=== PATIENT | male | born 1970 | race Caucasian/White ===

== ENCOUNTER 2020-12-04 00:49 | Day surgery (SDC) | payer BC, SELFPAY ==
[2020-11-21 13:59] VITALS: BMI 35.2
--- NOTE | 2020-12-03 12:13 | WPDANESEPPF ---
Anes - Initial Pre Proc Eval Procedure: Operation Date: 12/04/20 08:00 Proposed Procedures p Screening Colonoscopy - Herminio Villagran MD Date/Time: 12/03/20 12:13 Surgeon: Herminio Villagran MD Pre Op Diagnosis: neoplasm screening Z12.11 Patient Data Age: 50 Gender: M Height: 1.83 m Weight: 118 kg Allergies Allergy/AdvReac Type Severity Reaction Status Date / Time No Known Allergies Allergy Verified 12/04/20 06:51 Home Medications Medication Instructions Recorded Confirmed Type No Home Medications 11/21/20 11/21/20 History Patient hx anesthesia problems: none Family hx anesthesia problems: none PMFSH Family History Family History (Updated 11/16/13 @ 07:13 by DOCTOR UNKNOWN) Father Family history of congestive heart failure, Onset Age: 55 Social History Social History Smoking packs per day: 0.75 Smoking cigarettes per day: 15.0 Years smoked: 12 Smoking pack-years: 9.00 Smoking status: Current every day smoker Tobacco type: cigarettes Smoking end date: 03/22/12 Additional smoking assessment comments: OCC. CIGAR Alcohol intake: current Drinks per week: 6 Substance use: never Substance use type: does not use Living arrangements: with family Spiritual care concerns: No Anes - Eval Final PreProcedure Day of Procedure 12/03/20 12:13 Patient weight: obese Heart: regular rate and rhythm Lungs: clear to auscultation and normal air movement Airway: Mallampati scale class II Neurological: alert and oriented Last oral intake: >/= 8 hours ASA classification: II Emergent: no Anesthetic plan: proceed Anesthesia type and monitoring: general GIVS and standard monitoring Informed Consent: The patient's anesthetic plan and its attendant risks and benefits were discussed with the patient/family/POA. Questions were solicited and answers provided to the satisfaction of the patient/family/POA.
[2020-12-04 06:52] VITALS: BP 113/77; PULSE 65; RESP 16; TEMP 36; O2SAT 96; BMI 34.1
[2020-12-04] MEDS: LACTATED RINGERS 1,000 ML 150 ML IV CONT (07:04)
--- NOTE | 2020-12-04 07:51 | PM.HPGS ---
History of Present Illness History of Present Illness Consent: Risks, benefits, and alternatives have been discussed and questions answered. Patient agrees to proceed with procedure. Chief complaint: neoplasm screening Z12.11 Narrative: Jaquan Avila is a 50 year old male here for first screening colonoscopy Review of Systems Constitutional: Constitutional: Denies headache(s) and Denies weakness Eyes: Eyes: Denies blurry vision ENT: Reports Normal hearing present, Denies headache(s) and Denies neck pain Cardiovascular: Cardiovascular: Denies chest pain and Denies dyspnea Respiratory: Respiratory: Denies dyspnea Gastrointestinal: Gastrointestinal: Reports no additional gastrointestinal complaints Genitourinary: Genitourinary: Denies dysuria Musculoskeletal: Musculoskeletal: Denies neck pain Integumentary/Breasts: Skin/Breast: Denies dry skin Neurologic: Reports Normal hearing present, Denies headache(s) and Denies weakness Psychiatric: Psychiatric: Denies anxiety Endocrine: Endocrine: Denies change in body appearance Hematologic/Lymphatic: Hematologic/Lymphatic: Denies easy bleeding Allergic/Immunologic: Allergic/Immunologic: Denies urticaria PMFSH Past Medical History Medical History (Updated 12/04/20 @ 07:51 by Herminio Villagran MD) Colon cancer screening Family History Family History (Updated 11/16/13 @ 07:13 by DOCTOR UNKNOWN) Father Family history of congestive heart failure, Onset Age: 55 Social History Social History Smoking packs per day: 0.75 Smoking cigarettes per day: 15.0 Years smoked: 12 Smoking pack-years: 9.00 Smoking status: Current every day smoker Tobacco type: cigarettes Smoking end date: 03/22/12 Additional smoking assessment comments: OCC. CIGAR Alcohol intake: current Drinks per week: 6 Substance use: never Substance use type: does not use Living arrangements: with family Spiritual care concerns: No Meds Home Medications and Allergies Home Medications Medication Instructions Recorded Confirmed Type No Home Medications 11/21/20 11/21/20 History Allergies Allergy/AdvReac Type Severity Reaction Status Date / Time No Known Allergies Allergy Verified 12/04/20 06:51 Vital Signs Vital Signs - 24 hr 12/04/20 06:52 Temperature 96.8 F L Pulse Rate 65 Respiratory Rate 16 Blood Pressure 113/77 Pulse Oximetry 96 Exam Const: General: comfortable and no acute distress HENMT: General nose exam: Normal nares present Eyes: General: appearance normal, both eyes and all related structures Neck: Neck: no JVD Resp: Auscultation: clear to auscultation bilaterally Cardio: Rate: regular rate Rhythm: regular rhythm GI: Inspection: non-distended GI Palp: Yes Soft to palpation Skin: General skin exam: normal color Neuro: General: gait normal Speech: normal speech Extrem: General: normal to inspection Psych: Mental Status: mental status grossly normal Assessment and Plan Assessment and plan (1) Colon cancer screening: Code(s): Z12.11 - Encounter for screening for malignant neoplasm of colon Status: Acute Assessment and Plan: colonoscopy
[2020-12-04 08:13] VITALS: BP 113/73; PULSE 65; RESP 22; O2SAT 100
[2020-12-04 08:23] VITALS: BP 120/82; PULSE 61; RESP 20; O2SAT 100
[2020-12-04 08:33] VITALS: BP 120/84; PULSE 56; RESP 21; O2SAT 99
== END 2020-12-04 08:36 | disposition home or self-care (01) ==
PROVIDERS: PCP Emergency Medicine; Visit Provider Internal Medicine Gastroenterology
PROC: 0DJD8ZZ Inspection of Lower Intestinal Tract, Via Natural or Artificial Opening Endoscopic (ICD-10-PCS; CPT 45378; principal; 2020-12-04 08:00)
DX: Z12.11 Encounter for screening for malignant neoplasm of colon (principal); D12.2 Benign neoplasm of ascending colon; D12.5 Benign neoplasm of sigmoid colon; K63.5 Polyp of colon; K57.30 Diverticulosis of large intestine without perforation or abscess without bleeding; Z72.0 Tobacco use; E66.9 Obesity, unspecified; Z68.34 Body mass index [BMI] 34.0-34.9, adult
CPT/HCPCS: 45385; 88305; J2704; J7120

== ENCOUNTER 2024-07-17 02:11 | Day surgery (SDC) | payer BC, SELFPAY ==
[2024-07-04 14:34] VITALS: BMI 34.3
--- OUTSIDE RECORDS SUMMARY | 2024-07-17 02:15 | XMS_ITS | CONTINUITY OF CARE DOCUMENT ---
Author Name alcides kellylili Address Unknown Organization [facility] Address [address] [place] [address] Phone [phone] Care Team Providers Care Tax Manager Name Role Phone Roland COMER, Ruchi Unavailable SRINATH WELSH MD Unavailable SRINATH WELSH MD Unavailable INSURANCE PROVIDERS Payer name Policy type / Coverage type [place] [employer] ID [facility] [id number]
[2024-07-17 06:38] VITALS: BP 120/71; PULSE 68; RESP 16; TEMP 35.9; O2SAT 97; BMI 32.7
[2024-07-17] MEDS: LACTATED RINGERS 1,000 ML 150 ML IV CONT ×2 (06:46→07:59)
--- NOTE | 2024-07-17 07:04 | WPDANESEPPF ---
Anes - Initial Pre Proc Eval Procedure: Operation Date: 07/17/24 08:00 Proposed Procedures p Colonoscopy - Herminio Villagran MD Date/Time: 07/17/24 07:04 Surgeon: Herminio Villagran MD Pre Op Diagnosis: Personal hx of colon polyps Patient Data Age: 54 Gender: M Height: 1.85 m Weight: 112.5 kg Last Vital Signs Temp 96.7 F L 07/17/24 06:38 Pulse 68 07/17/24 06:38 Resp 16 07/17/24 06:38 BP 120/71 07/17/24 06:38 Pulse Ox 97 07/17/24 06:38 O2 Del Method Room Air 07/17/24 06:38 Allergies Allergy/AdvReac Type Severity Reaction Status Date / Time No Known Allergies Allergy Verified 07/17/24 06:37 Home Medications ?Medication ?Instructions ?Recorded ?Confirmed ?Type No Home Medications 11/21/20 07/04/24 History Patient hx anesthesia problems: none Family hx anesthesia problems: none Results Review: All pre-operative results and documents have been reviewed as part of the pre-operative evaluation. [facility] Past Medical History Medical History Colon cancer screening Family History Family History Father Family history of congestive heart failure, Onset Age: 55 Social History Social History Smoking packs per day: 1 Smoking cigarettes per day: 20.0 Years smoked: 15 Smoking pack-years: 15.00 Smoking status: Former smoker Tobacco type: cigars Smoking end date: 03/22/12 Additional smoking assessment comments: OCC. CIGAR Alcohol intake: current Drinks per week: 6 Alcohol use details: Beer Substance use: never Substance use type: does not use Living arrangements: with family Spiritual care concerns: No Anes - Eval Final PreProcedure Day of Procedure 07/17/24 07:04 Patient weight: obese Lungs: normal air movement Airway: Mallampati scale class II Neurological: alert and oriented Last oral intake: >/= 8 hours ASA classification: II Emergent: no Anesthetic plan: proceed Anesthesia type and monitoring: general GIVS and standard monitoring Results Review: All pre-operative results and documents have been reviewed as part of the pre-operative evaluation. BMI 32, pt active overall w walking 1-2 fos, no cp or sob. Informed Consent: The patient's anesthetic plan and its attendant risks and benefits were discussed with the patient/family/POA. Questions were solicited and answers provided to the satisfaction of the patient/family/POA.
--- NOTE | 2024-07-17 07:44 | PM.HPGS ---
History of Present Illness History of Present Illness Consent: Risks, benefits, and alternatives have been discussed and questions answered. Patient agrees to proceed with procedure. Chief complaint: Personal hx of colon polyps Narrative: Jaquan Avila is a 54 year old male with colon polyp in 2020 Review of Systems Review of Systems: All systems reviewed & are unremarkable except as noted in HPI and below PMFSH Past Medical History Medical History (Updated 07/17/24 @ 07:45 by Herminio Villagran MD) Colon polyp Colon cancer screening Family History Family History Father Family history of congestive heart failure, Onset Age: 55 Social History Social History Smoking packs per day: 1 Smoking cigarettes per day: 20.0 Years smoked: 15 Smoking pack-years: 15.00 Smoking status: Former smoker Tobacco type: cigars Smoking end date: 03/22/12 Additional smoking assessment comments: OCC. CIGAR Alcohol intake: current Drinks per week: 6 Alcohol use details: Beer Substance use: never Substance use type: does not use Living arrangements: with family Spiritual care concerns: No Meds Home Medications and Allergies Home Medications ?Medication ?Instructions ?Recorded ?Confirmed ?Type No Home Medications 11/21/20 07/04/24 History Allergies Allergy/AdvReac Type Severity Reaction Status Date / Time No Known Allergies Allergy Verified 07/17/24 06:37 Vital Signs Vital Signs - 24 hr 07/17/24 06:38 Temperature 96.7 F L Pulse Rate 68 Respiratory Rate 16 Blood Pressure 120/71 Pulse Oximetry 97 Oxygen Delivery Room Air Exam Const: General: comfortable and no acute distress HENMT: Face/Nose/Sinus: Normal nares present Eyes: General: appearance normal, both eyes and all related structures Neck: Neck: no JVD Resp: Auscultation: clear to auscultation bilaterally Cardio: Rate: regular rate Rhythm: regular rhythm GI: Inspection: non-distended GI Palp: Yes Soft to palpation Skin: General skin exam: normal color Neuro: General: gait normal Speech: normal speech Extrem: General: normal to inspection Psych: Mental Status: mental status grossly normal Assessment and Plan Assessment and plan (1) Colon polyp: Code(s): K63.5 - Polyp of colon Status: Acute Assessment and Plan: colonoscopy
[2024-07-17 08:00] VITALS: BP 107/67; PULSE 72; RESP 20; O2SAT 98
[2024-07-17 08:10] VITALS: BP 120/75; PULSE 58; RESP 18; O2SAT 99
[2024-07-17 08:20] VITALS: BP 113/67; PULSE 62; RESP 18; O2SAT 99
== END 2024-07-17 08:25 | disposition home or self-care (01) ==
PROVIDERS: PCP Emergency Medicine; Referring Provider Internal Medicine Gastroenterology; Visit Provider Internal Medicine Gastroenterology
PROC: 0DJD8ZZ Inspection of Lower Intestinal Tract, Via Natural or Artificial Opening Endoscopic (ICD-10-PCS; CPT 45378; principal; 2024-07-17 08:00)
DX: Z12.11 Encounter for screening for malignant neoplasm of colon (principal); Z86.0100 Personal history of colon polyps, unspecified; K57.30 Diverticulosis of large intestine without perforation or abscess without bleeding; K64.8 Other hemorrhoids; Z87.891 Personal history of nicotine dependence
CPT/HCPCS: 45378; J2003; J2704; J7120